=== PATIENT | male | born 1940 | race Caucasian/White ===

== ENCOUNTER → 2016-10-21 | Outpatient (CLI) | payer MEDICARE, OTHER ==
--- NOTE | 2016-10-22 09:04 | PCVCIMAG ---
APPROVED REPORT Exam: Stress Echocardiogram Indication: DIABETES, HYPERLIPIDEMIA, ABN. CALCIUM SCORE Patient Location: Out-Patient Stress Nurse: Jolie Jordan RN Status: routine Ht: 5 ft 11 in BP: 108/74 mmHg Rhythm: NSR Procedure The patient underwent an Exercise Stress Test using the Ray Protocol. Blood pressure, heart rate, and EKG were monitored. An Echocardiogram was performed by [employer] field technician in four stages in quad fashion. At peak stress, four selected images were obtained and placed side by side with resting images for comparison. Stress Test Details Stress Test: Exercise stress testing was performed using a modified Ray protocol. HR Resting HR: 52 bpmMax Heart Rate (APMHR): 145 bpm Max HR Achieved: 136 bpmTarget HR (85% APMHR): 123 bpm % of APMHR: 93 HR response to stress: Normal HR response to stress BP Resting BP: 108/74 mmHg Max BP: 186/78 mmHg ECG Resting ECG: Sinus Rhythm Stress ECG: Sinus Rhythm, nonspecific ST-T abnormalities ST Change: Non-ischemic Clinical Reason for Termination: Maximal effort Stress Symptoms: Dyspnea Exercise duration: 7 min 14 sec Highest Stage Achieved: Stage 2: 2.5 mph at 12% grade. Exercise capacity: 10.40 METs Overall Exercise Capacity for Age: Normal Pre-Stress Echo The resting Echocardiogram showed normal left ventricular contractility with an estimated Ejection Fraction of about 55-60%. Normal wall motion in all segments on baseline images. Post-Stress Echo The stress Echocardiogram showed normal left ventricular contractility with an estimated Ejection Fraction of about 60-65%. Normal augmentation of wall motion in all segments on post stress images. Conclusion Clinical Response: Non-ischemic Exercise Capacity: Average Stress ECG Response: Non-ischemic Stress Echo Images: Non-ischemic Dilated Ascending Aorta measuring up to 4.5cm2. Other Information Study Quality: Good <Conclusion> Dilated Ascending Aorta measuring up to 4.5cm2.
== END | disposition home or self-care (01) ==
LOC: PCVCIMAG 12:59
PROVIDERS: ATTEND Internal Medicine Cardiovascular Disease
DX: I77.819 Aortic ectasia, unspecified site (principal); E78.5 Hyperlipidemia, unspecified; E11.9 Type 2 diabetes mellitus without complications; R93.1 Abnormal findings on diagnostic imaging of heart and coronary circulation
CPT/HCPCS: 93325; 93351

== ENCOUNTER → 2017-12-09 | Outpatient (CLI) | payer MEDICARE, OTHER | END | disposition home or self-care (01) | LOC: PCVCCLINIC 15:54 | PROVIDERS: ATTEND Internal Medicine Cardiovascular Disease | DX: G45.3 Amaurosis fugax (principal); R93.1 Abnormal findings on diagnostic imaging of heart and coronary circulation; E78.00 Pure hypercholesterolemia, unspecified; K21.9 Gastro-esophageal reflux disease without esophagitis; E78.5 Hyperlipidemia, unspecified; Z87.891 Personal history of nicotine dependence; Z72.89 Other problems related to lifestyle | CPT/HCPCS: 93005; G0463 ==

== ENCOUNTER → 2018-01-15 | Outpatient (CLI) | payer MEDICARE, OTHER ==
--- NOTE | 2018-01-15 14:41 | PCVCIMAG ---
APPROVED REPORT Study performed: 01/15/2018 13:55:25 EXAM: Comprehensive 2D, Doppler, and color-flow Echocardiogram Patient Location: Echo lab Status: routine BSA: 2.02 HR: 60 bpmBP: 138/80 mmHg Rhythm: NSR Other Information Study Quality: Adequate Indications visual disturbance, ascending aortic aneurysm, elevated calcium score, hlp 2D Dimensions IVSd: 17.48 (7-11mm) LVDd: 42.62 mm PWd: 12.64 (7-11mm)Ascending Ao: 46.51 (22-36mm) LVDs: 28.08 (25-40mm) Left Atrium: 36.37 (27-40mm) Aortic Root: 42.98 mm LV Single Plane 4CH: 65.46 % LV Single Plane 2CH: 64.38 % Biplane EF: 64.5 % Volumes Left Atrial Volume (Systole) Single Plane 4CH: 92.48 mLSingle Plane 2CH: 81.44 mL LA ESV Index: 44.00 mL/m2 Aortic Valve AoV Peak Kyle.: 1.63 m/s AO Peak Gr.: 10.67 mmHgLVOT Max P.24 mmHg LVOT Max V: 1.25 m/s AI Vmax: 4.65 m/s AI [place]: 2.58 m/s2 AI PHT: 529.12 ms Mitral Valve E/A Ratio: 1.6 MV Decel. Time: 177.98 ms MV E Max Kyle.: 0.71 m/s MV A Kyle.: 0.45 m/s IVRT: 100.35 ms Pulmonary Valve PV Peak Kyle.: 0.78 m/sPV Peak Gr.: 2.43 mmHg Pulmonary Vein P Vein S: 0.43 m/sP Vein A: 0.38 m/s P Vein D: 0.55 m/sP Vein A Dur.: 141.9 msec P Vein S/D Ratio: 0.78 Tricuspid Valve TR Peak Kyle.: 2.48 m/s TR Peak Gr.: 24.65 mmHg Left Ventricle The left ventricle is normal size. There is normal LV segmental wall motion. Mild concentric left ventricular hypertrophy. Left ventricular systolic function is normal. The left ventricular ejection fraction is within the normal range. LVEF is 60-65%. Grade II - pseudonormal filling dynamics. Right Ventricle The right ventricle is normal size. The right ventricular systolic function is normal. Atria Left atrium is moderately dilated. The right atrium size is normal. Aortic Valve The aortic valve is normal in structure. Mild to moderate aortic regurgitation. There is no aortic valvular stenosis. Mitral Valve The mitral valve is normal in structure. Mild mitral regurgitation. No evidence of mitral valve stenosis. Tricuspid Valve The tricuspid valve is normal in structure. Mild tricuspid regurgitation with PAP of 32 mmHg. Pulmonic Valve The pulmonary valve is normal in structure. There is no pulmonic valvular regurgitation. Great Vessels Aortic root is mildly dilated to 4.3 cm and the aortic sinus of valsalva is dilated to 4.6 cm. The ascending aorta is dilated to 4.6 cm. IVC is normal in size and collapses >50% with inspiration. Pericardium There is no pericardial effusion. There is no pleural effusion. <Conclusion> The left ventricle is normal size. Mild concentric left ventricular hypertrophy. Left ventricular systolic function is normal. Grade II - pseudonormal filling dynamics. The right ventricle is normal size. Left atrium is moderately dilated. Mild to moderate aortic regurgitation. Mild mitral regurgitation. Mild tricuspid regurgitation with PAP of 32 mmHg. The ascending aorta is dilated to 4.6 cm.
--- NOTE | 2018-01-15 15:11 | PCVCIMAG ---
EXAM: BILATERAL CAROTID DUPLEX INDICATION: Carotid Occlusive Disease. Amaurosis fugax. FINDINGS: Doppler Measurements (centimeters per second): RIGHT: Peak CCA-81, Peak ECA-66, Diastolic ICA-24, Peak ICA-70, ICA/CCA Ratio-0.9. LEFT: Peak CCA-80, Peak ECA-79, Diastolic ICA-26, Peak ICA-69, ICA/CCA Ratio-0.9. RIGHT CAROTID: The carotid bulb has mild plaque. The proximal internal carotid artery shows <40% stenosis. The common carotid artery shows no significant stenosis. The external carotid artery shows no significant stenosis. LEFT CAROTID: The carotid bulb has mild plaque. The proximal internal carotid artery shows <40% stenosis. The common carotid artery shows no significant stenosis. The external carotid artery shows no significant stenosis. Antegrade flow in both vertebral arteries. IMPRESSION: <40% stenosis of the right internal carotid artery with mild plaque. <40% stenosis of the left internal carotid artery with mild plaque. LOC:[place] [id number]
== END | disposition home or self-care (01) ==
LOC: PCVCIMAG 14:04
PROVIDERS: ATTEND Internal Medicine Cardiovascular Disease
DX: I65.23 Occlusion and stenosis of bilateral carotid arteries (principal); I08.3 Combined rheumatic disorders of mitral, aortic and tricuspid valves; R93.1 Abnormal findings on diagnostic imaging of heart and coronary circulation; H53.9 Unspecified visual disturbance; Z79.82 Long term (current) use of aspirin; Z87.891 Personal history of nicotine dependence
CPT/HCPCS: 93005; 93306; 93880; G0463